=== PATIENT | male | born 1970 | race Hispanic/Latino ===

== ENCOUNTER 2017-03-17 00:45 | Emergency (ER) | payer BC ==
[2017-03-17] MEDS ORDERED: FLUORESCEIN SODIUM 0.6 MG STRIP ONE (01:10)
[2017-03-17] MEDS ORDERED: TETRACAINE HCL 0.5% 4 ML OPHTH SOLN ONE (01:10)
[2017-03-17] MEDS ORDERED: NA BORATE/BORIC AC/H2O/NACL 120 ML OPHTH IRRIG SOLN ONE (01:11)
[2017-03-17] MEDS ORDERED: GENTAMICIN SULFATE 0.3% 5ML DROPS ONE (02:39)
== END 2017-03-17 03:02 | disposition home or self-care (01) ==
LOC: EDH 00:45
DX: S05.32XA Ocular laceration without prolapse or loss of intraocular tissue, left eye, initial encounter (principal); T26.12XA Burn of cornea and conjunctival sac, left eye, initial encounter; I10 Essential (primary) hypertension; W40.8XXA Explosion of other specified explosive materials, initial encounter; Y93.89 Activity, other specified; Y92.89 Other specified places as the place of occurrence of the external cause; Y99.8 Other external cause status
CPT/HCPCS: 65205

== ENCOUNTER 2018-08-17 13:21 | Emergency (ER) | payer BC | END 2018-08-17 15:17 | disposition home or self-care (01) | LOC: EDH 13:21 | DX: J06.9 Acute upper respiratory infection, unspecified (principal); I10 Essential (primary) hypertension | CPT/HCPCS: 87804 ==

== ENCOUNTER 2019-08-09 15:17 | Emergency (ER) | payer BC ==
[2019-08-09] MEDS ORDERED: NA BORATE/BORIC AC/H2O/NACL 120 ML OPHTH IRRIG SOLN ONE (15:40)
[2019-08-09] MEDS ORDERED: FLUORESCEIN SODIUM 1 STRIP STRIP ONE (15:40)
[2019-08-09] MEDS ORDERED: TETANUS/DIPHTHERIA TOXOID [ADULT] 0.5 ML VIAL IM ONE (15:41)
[2019-08-09] MEDS ORDERED: TETRACAINE HCL 0.5% 4 ML OPHTH SOLN ONE (16:00)
== END 2019-08-09 16:21 | disposition home or self-care (01) ==
LOC: EDH 15:17
DX: S05.02XA Injury of conjunctiva and corneal abrasion without foreign body, left eye, initial encounter (principal); S05.01XA Injury of conjunctiva and corneal abrasion without foreign body, right eye, initial encounter; I10 Essential (primary) hypertension; X58.XXXA Exposure to other specified factors, initial encounter; Y93.89 Activity, other specified; Y92.89 Other specified places as the place of occurrence of the external cause; Y99.8 Other external cause status
CPT/HCPCS: 90471; 90714

== ENCOUNTER 2023-02-17 17:52 | Emergency (ER) | payer BC ==
[~2023-02-17] VITALS: Ht 172.7 cm; Wt 93.4 kg
[~2023-02-17 17:52] MED LIST: KETO.5OS OS; POLY10DR22 OS
[2023-02-18 02:41] VITALS: BP 138/79; PULSE 83; RESP 16; O2SAT 96
== END 2023-02-18 02:47 | disposition home or self-care (01) ==
LOC: EDH 17:52
DX: K64.4 Residual hemorrhoidal skin tags (principal); I16.0 Hypertensive urgency
CPT/HCPCS: 99281